=== PATIENT | female | born 1995 | race Caucasian/White ===

== ENCOUNTER 2017-08-15 04:10 | Emergency (ER) | payer OTHER ==
[~2017-08-15] VITALS: Ht 160 cm; Wt 81.6 kg
[2017-08-15 04:16] VITALS: BP 145/77
--- NOTE | 2017-08-15 04:16 | NUR ---
PT.BIB [facility] TO ER [facility]
--- NOTE | 2017-08-15 04:26 | NUR ---
21Y/F PT. BIB [facility] TO ED FOR PRE-BOOK. PT. WAS A [employer], ETOH, PT. NOT SURE HOW OLD OF . DENIES MED HX. AAO X4, AMBULATORY WITH STDEAY GAIT. RESPIRATIONS EVEN AND UNLABORED. NO C/O PAIN AND DISCOMFORT AT THIS TIME. VSS, ER MADE AWARE OF PT. STATUS.
[2017-08-15 04:42] VITALS: BP 145/77
--- NOTE | 2017-08-15 04:42 | NUR ---
PATIENT BIB [facility] DEPT. PATIENT EXAMINED BY DR. WHATLEY. PATIENT MEDICALLY CLEARED AND RELEASED IN CUSTODY IN STABLE CONDITION. ORIGINAL PRE-BOOK FORM GIVEN TO OFFICER GARETH.
--- NOTE | 2017-08-15 04:42 | NUR ---
Patient discharged with v/s stable. Written and verbal after care instructions given and explained. Patient verbalized understanding. Ambulatory with steady gait. All questions addressed prior to discharge. Advised to follow up with PMD.
== END 2017-08-15 04:42 ==
LOC: MED 04:10
DX: Z02.89 Encounter for other administrative examinations (principal); Z32.02 Encounter for pregnancy test, result negative
CPT/HCPCS: 81025; 99283